=== PATIENT | male | born 1980 | race Caucasian/White ===

== ENCOUNTER 2017-03-10 12:50 | Emergency (ER) | payer OTHER ==
--- NOTE | ~2017-03-10 | CR113 ---
[facility] A Service of [facility] & [facility] RADIOLOGY TEXT RESULTS PATIENT: ADIEL CHRISTENSEN LOCATION: [facility] : 84 UNIT #: [id number] AGE: [address]: Kathy Delgadillo APRN SEX: M ORDER DR: [id number] [facility] [address] [place], [place] [address] [id number] E MR#: [id number] Acc #: [id number] NAME: ADIEL CHRISTENSEN : 1980 SEX: M STUDY DATE/TIME: 03/10/2017 13:30 UNIT: [facility] ROOM: STUDY DESCRIPTION: CR Finger 2 View 4Th Rt Attending Physician: Kathy Delgadillo A.P.R.N. Ordering Physician: Ed Yohan Orta M.D. Primary Care Physician: Primary Care Physician No MEDICAL IMAGING REPORT This report is preliminary unless electronic signature is present EXAM Right second finger INDICATIONS Swelling for a year, which is worse in the last month; piece of metal fell on fourth finger last year. FINDINGS Three views of the right fourth finger were obtained. On lateral view, there is focal soft tissue swelling anterior to the DIP joint and the round nature of this focal soft tissue swelling is suggestive that there may be a cyst in this region. There is no fracture. IMPRESSION The bones of the fourth digit are normal, but there is focal soft tissue swelling anterior to the DIP joint. Dictated by... Fermín Mckeon M.D. THIS IS AN ELECTRONICALLY VERIFIED REPORT Fermín Mckeon M.D. at 03/11/2017 7:27 AM SILVER/andrea TD: 03/10/2017 22:28 JOB #: [id number] MEDICAL IMAGING REPORT Page 1 of 1 COPY
[~2017-03-10 12:50] MED LIST: NO MEDICATIONS; ZITHROMAX PO
== END 2017-03-10 14:16 | disposition home or self-care (01) ==
LOC: CED 12:50 → CFTX 12:50
DX: L72.3 Sebaceous cyst (principal); F17.200 Nicotine dependence, unspecified, uncomplicated
CPT/HCPCS: 26010; 73140; 99283

== ENCOUNTER 2017-04-25 02:24 | Emergency (ER) | payer OTHER ==
--- NOTE | ~2017-04-25 | EKG ---
PATIENT: ADIEL CHRISTENSEN UNIT #: [id number] Ventricular Rate: 91 BPM Atrial Rate: 91 BPM P-R Interval: 166 ms QRS Duration: 94 ms Q-T Interval: 354 ms QTC Calculation(Bezet): 435 ms P [place]: 22 degrees Calculated R [place]: 49 degrees Calculated T [place]: -25 degrees Diagnosis Line: Normal sinus rhythm Diagnosis Line: ST and T wave abnormality, consider inferior Diagnosis Line: ischemia Diagnosis Line: Abnormal ECG Diagnosis Line: No previous ECGs available Diagnosis Line: Confirmed by ALE SCHULER MD ([id number]) on Diagnosis Line: 04/26/2017 7:31:13 AM INTERPRETING MD: HARINI MILLER
--- NOTE | ~2017-04-25 | CR72 ---
[facility] A Service of [facility] & [facility] RADIOLOGY TEXT RESULTS PATIENT: ADIEL CHRISTENSEN LOCATION: [facility] : 84 UNIT #: [id number] AGE: [address]: Herrera Guillen MD SEX: M ORDER DR: [id number] [facility] [address] [place], [place] [address] [id number] E MR#: [id number] Acc #: [id number] NAME: ADIEL CHRISTENSEN : 1980 SEX: M STUDY DATE/TIME: 04/25/2017 2:35 UNIT: [facility] ROOM: STUDY DESCRIPTION: CR Chest Single View Portable Attending Physician: Herrera Guillen M.D. Ordering Physician: Ed Doc Zack Orta Primary Care Physician: No Primary Care Physician MEDICAL IMAGING REPORT This report is preliminary unless electronic signature is present EXAM Portable chest. INDICATIONS Chest pain today. PROCEDURE Frontal view chest. COMPARISON 07/05/2015 FINDINGS Heart size normal. No dense consolidation, pleural fluid or pneumothorax. IMPRESSION No active process. Dictated by... Maxwell Thompson M.D. THIS IS AN ELECTRONICALLY VERIFIED REPORT Maxwell Thompson M.D. at 04/25/2017 9:52 PM EED/reza TD: 04/25/2017 11:24 JOB #: [id number] MEDICAL IMAGING REPORT Page 1 of 1 COPY
== END 2017-04-30 19:01 | disposition home or self-care (01) ==
LOC: CED 02:24
DX: J20.9 Acute bronchitis, unspecified (principal); F17.200 Nicotine dependence, unspecified, uncomplicated
CPT/HCPCS: 71010; 93005; 99285